=== PATIENT | female | born 1960 | race African-American/Black ===

== ENCOUNTER 2017-05-22 19:03 | Inpatient (IN) ==
[2017-05-22] MEDS ORDERED: hydrALAZINE 20 MG/1 ML VIAL IV STA (19:58)
[2017-05-22] MEDS ORDERED: FUROSEMIDE 40 MG/4 ML VIAL IV STA (19:58)
[2017-05-22 20:44] LABS: Basophils # 0.1 10*3/uL (0.0-0.2); Basophils % 0.8 % (0.0-0.8); Eosinophils # 0.1 10*3/uL (0.0-0.87); Eosinophils % 0.7 % (0.00-10.9); Immature Granulocytes % 0.6 %; Immature Granulocytes Absolute 0.05 #; Lymphocytes # 1.6 10*3/uL (1.4-4.0); Lymphocytes % 18.3 % (21.3-54.2); Mean Corpuscular HGB Conc 25.5 GM/DL (32-36); Mean Corpuscular Hemoglobin 17 PG (27-34); Mean Corpuscular Volume 67.6 FL (87-102); Monocytes # 0.7 10*3/uL (0.11-0.8); NRBC # 0.06 10*3/uL; Neutrophils # 6.1 10*3/uL (1.4-7.4); Neutrophils % 71.6 % (38.7-73.9); Platelet Count 356 T/CUMM (130-400); Red Blood Count 5.46 MC/CUMM (3.8-5.5); Red Cell Distribution Width 26.1 % (9.3-17.3); White Blood Count 8.6 T/CUMM (4-12)
[2017-05-22 20:46] LABS: Hematocrit 36.9 VOL% (35.7-47.0); Hemoglobin 9.4 GM/DL (12.0-16.0)
[2017-05-22 20:51] LABS: VBG Base Excess 5.8 MEQ/L (0-4); VBG HCO3 31.3 MEQ/L (24-28); VBG Oxygen Saturation 83.1 %; VBG PCO2 50.2 MMHG (41-51); VBG PH 7.413
[2017-05-22 21:04] LABS: Alanine Aminotransferase 17 U/L (13-56); Albumin 3.3 G/DL (3.4-5.0); Alkaline Phosphatase 103 U/L (45-117); Aspartate Amino Transferase 10 U/L (0-37); Blood Urea Nitrogen 9 MG/DL (7-18); Calcium 8.6 MG/DL (8.5-10.1); Glucose 105 MG/DL (74-106); Osmolality,Calculated 277.4 MOS/KG (273-304); Potassium 3.9 MMOL/L (3.5-5.1); Sodium 140 MMOL/L (136-145); Total Protein 7.3 G/DL (6.4-8.3); Troponin I Only < 0.015 NG/ML (0.00-0.045)
[2017-05-22] MEDS ORDERED: hydrALAZINE 20 MG/1 ML VIAL ONE (21:26)
[2017-05-22] MEDS ORDERED: FUROSEMIDE 40 MG/4 ML VIAL ONE (21:26)
[2017-05-23] MEDS ORDERED: hydrALAZINE 20 MG/1 ML VIAL IV PRN (00:55)
[2017-05-23] MEDS: METOPROLOL TARTRATE 50 MG TABLET PO SCH ×3 (01:39→21:07)
[2017-05-23 02:35] LABS: Basophils # 0.1 10*3/uL (0.0-0.2); Basophils % 0.6 % (0.0-0.8); Eosinophils % 0.3 % (0.00-10.9); Hematocrit 39.8 VOL% (35.7-47.0); Hemoglobin 10.1 GM/DL (12.0-16.0); Immature Granulocytes % 0.8 %; Immature Granulocytes Absolute 0.07 #; Lymphocytes # 1.6 10*3/uL (1.4-4.0); Lymphocytes % 18.2 % (21.3-54.2); Mean Corpuscular HGB Conc 25.4 GM/DL (32-36); Mean Corpuscular Hemoglobin 17 PG (27-34); Mean Corpuscular Volume 67.3 FL (87-102); Monocytes # 0.8 10*3/uL (0.11-0.8); Monocytes % 8.7 % (1.7-12.7); NRBC # 0.07 10*3/uL; Neutrophils # 6.2 10*3/uL (1.4-7.4); Neutrophils % 71.4 % (38.7-73.9); Platelet Count 360 T/CUMM (130-400); Red Blood Count 5.91 MC/CUMM (3.8-5.5); Red Cell Distribution Width 26.5 % (9.3-17.3); White Blood Count 8.7 T/CUMM (4-12)
[2017-05-23 02:45] LABS: Calcium 9.1 MG/DL (8.5-10.1); Osmolality,Calculated 281.1 MOS/KG (273-304); Potassium 4.1 MMOL/L (3.5-5.1); Risk Ratio 3.58; VLDL CHOLESTEROL 12.8 MG/DL
[2017-05-23] MEDS: ENOXAPARIN 40 MG/0.4 ML SYRINGE SUBCUT SCH (09:05)
[2017-05-23] MEDS: PANTOPRAZOLE 40 MG TABLET PO SCH (09:05)
[2017-05-23] MEDS: FUROSEMIDE 40 MG/4 ML VIAL IV SCH ×2 (09:06→15:09)
[2017-05-23] MEDS: amLODIPine 5 MG TABLET PO SCH (12:05)
[2017-05-23 17:31] LABS: Apearance,Urine CLEAR (Clear); Bilirubin,Urine Negative (Negative); Blood, Urine Moderate mg/dL (Negative); Glucose,Urine (UA) Negative (Negative); Ketones,Urine Negative (Negative); Mucus,Urine Occasional /LPF (Occasional); Nitrite,Urine Negative (Negative); Protein,Urine Negative; RBC,Urine <1 /HPF (0-4); Squamous Epithelial Cell,Urine Occasional /HPF (0-10); Urine Color Straw (Yellow); Urine Specific Gravity 1.004 (1.001-1.035); Urine Urobilinogen < 2.0 EU/DL (0.2-1.0); WBC,Urine 2 /HPF (0-6)
[2017-05-23 18:12] LABS: Barbiturates Screen,Urine Negative (Negative); Benzodiazepines Screen,Urine Negative (Negative); Cannabinoid Screen,Urine Negative (Negative); Opiate Screen,Urine Negative (Negative); Phencyclidine Screen,Urine Negative (Negative)
[2017-05-24 06:55] LABS: Free T4 (Free Thyroxine) 1.36 NG/DL (0.76-1.46); Thyroid Stimulating Hormone 1.1 uIU/ml (0.358-3.74)
[2017-05-24] MEDS: amLODIPine 5 MG TABLET PO SCH (08:54)
[2017-05-24] MEDS: METOPROLOL TARTRATE 50 MG TABLET PO SCH ×2 (08:54→21:30)
[2017-05-24] MEDS: PANTOPRAZOLE 40 MG TABLET PO SCH (08:54)
[2017-05-24] MEDS: ENOXAPARIN 40 MG/0.4 ML SYRINGE SUBCUT SCH (08:54)
[2017-05-24] MEDS: FUROSEMIDE 40 MG/4 ML VIAL IV SCH ×2 (08:54→17:07)
[2017-05-25] MEDS: ENOXAPARIN 40 MG/0.4 ML SYRINGE SUBCUT SCH (08:41)
[2017-05-25] MEDS: PANTOPRAZOLE 40 MG TABLET PO SCH (08:41)
[2017-05-25] MEDS: METOPROLOL TARTRATE 50 MG TABLET PO SCH ×2 (08:41→22:25)
[2017-05-25] MEDS: amLODIPine 5 MG TABLET PO SCH (08:41)
[2017-05-25] MEDS: FUROSEMIDE 40 MG/4 ML VIAL IV SCH ×2 (08:41→17:00)
[2017-05-26] MEDS: amLODIPine 5 MG TABLET PO SCH (09:09)
[2017-05-26] MEDS: PANTOPRAZOLE 40 MG TABLET PO SCH (09:09)
[2017-05-26] MEDS: METOPROLOL TARTRATE 50 MG TABLET PO SCH (09:09)
[2017-05-26] MEDS: FUROSEMIDE 40 MG/4 ML VIAL IV SCH (09:09)
[2017-05-26] MEDS: ENOXAPARIN 40 MG/0.4 ML SYRINGE SUBCUT SCH (09:10)
[2017-05-26 12:00] VITALS: BP 113/77
== END 2017-05-26 15:40 | disposition home or self-care (01) | DRG 194 ==
LOC: N.ED 19:03 → SUATTDRO 05-23 00:27 → N.5E 05-23 00:27
PROVIDERS: ADMIT Internal Medicine Nephrology; ATTEND Hospitalist

== ENCOUNTER 2020-09-02 07:00 | Inpatient (IN) ==
[2020-09-02 08:11] LABS: Eosinophils % 0.6 % (0.00-10.9); Neutrophils % 78.8 % (38.7-73.9); Red Cell Distribution Width 22.2 % (9.3-17.3)
[2020-09-02 08:32] LABS: Basophils # 0.1 10*3/uL (0.0-0.2); Basophils % 0.8 % (0.0-0.8); Eosinophils # 0.1 10*3/uL (0.0-0.87); Hematocrit 39.9 VOL% (35.7-47.0); Immature Granulocytes % 2.6 %; Immature Granulocytes Absolute 0.28 #; Lymphocytes # 1.2 10*3/uL (1.4-4.0); Lymphocytes % 11.5 % (21.3-54.2); Mean Corpuscular HGB Conc 25.8 GM/DL (32-36); Mean Corpuscular Volume 73.5 FL (87-102); Monocytes % 5.7 % (1.7-12.7); Platelet Count 189 T/CUMM (130-400); Red Blood Count 5.43 MC/CUMM (3.8-5.5); White Blood Count 10.6 T/CUMM (4-12)
[2020-09-02 08:33] LABS: Hemoglobin 10.3 GM/DL (12.0-16.0)
[2020-09-02 08:34] LABS: Hypochromasia 1+; Microcytosis 1+; Platelet Estimate Adequate
[2020-09-02 08:38] LABS: Albumin 3.7 G/DL (3.4-5.0); Bilirubin,Total 0.8 MG/DL (0.2-1.0); Calcium 8.5 MG/DL (8.5-10.1); Osmolality,Calculated 279.3 MOS/KG (273-304); Potassium 3.5 MMOL/L (3.5-5.1); Total Protein 7.9 G/DL (6.4-8.3)
[2020-09-02] MEDS ORDERED: cefTRIAXone 1,000 MG in SODIUM CHLORIDE 0.9% 100 ML IV STA (09:40)
[2020-09-02] MEDS ORDERED: cefTRIAXone 1,000 MG in SODIUM CHLORIDE 0.9% 100 ML IV ONE (11:10)
[2020-09-02] MEDS ORDERED: DOCUSATE SODIUM 100 MG CAPSULE PO PRN (11:11)
[2020-09-02] MEDS ORDERED: DEXTROSE 50% 25 GM/50 ML VIAL IV PRN (11:11)
[2020-09-02] MEDS ORDERED: ACETAMINOPHEN 325 MG TABLET PO PRN (11:11)
[2020-09-02] MEDS ORDERED: ONDANSETRON 4 MG/2 ML VIAL IV PRN (11:11)
[2020-09-02] MEDS ORDERED: GLUCAGON 1 MG VIAL IM PRN (11:11)
[2020-09-02] MEDS ORDERED: ALBUTEROL/IPRATROPIUM 3 ML NEB RESP TX PRN (11:44)
[2020-09-02 11:49] LABS: Risk Ratio 5.17; Thyroid Stimulating Hormone 1.23 uIU/ml (0.358-3.74); VLDL CHOLESTEROL 21.4 MG/DL
[2020-09-02] MEDS ORDERED: hydrALAZINE 20 MG/1 ML VIAL IV PRN (12:16)
[2020-09-02] MEDS: ENOXAPARIN 40 MG/0.4 ML SYRINGE SUBCUT SCH (16:00)
[2020-09-02] MEDS: FUROSEMIDE 40 MG/4 ML VIAL IV SCH (16:17)
[2020-09-02] MEDS: AZITHROMYCIN INJ 500 MG in SODIUM CHLORIDE 0.9% 250 ML IV SCH (16:17)
[2020-09-02] MEDS: METOPROLOL TARTRATE 50 MG TABLET PO SCH (22:41)
[2020-09-02] MEDS: NICOTINE 14 MG/24 HR PATCH TRANSDERM SCH (22:44)
[2020-09-03 05:40] LABS: Calcium 8.6 MG/DL (8.5-10.1); Osmolality,Calculated 276.4 MOS/KG (273-304); Potassium 3.5 MMOL/L (3.5-5.1)
[2020-09-03 06:15] LABS: Basophils # 0.1 10*3/uL (0.0-0.2); Basophils % 0.7 % (0.0-0.8); Eosinophils # 0.1 10*3/uL (0.0-0.87); Eosinophils % 1.1 % (0.00-10.9); Hematocrit 38.5 VOL% (35.7-47.0); Hemoglobin 9.8 GM/DL (12.0-16.0); Immature Granulocytes % 1.5 %; Immature Granulocytes Absolute 0.13 #; Lymphocytes # 1.3 10*3/uL (1.4-4.0); Mean Corpuscular HGB Conc 25.5 GM/DL (32-36); Mean Corpuscular Volume 73.6 FL (87-102); Monocytes % 6.7 % (1.7-12.7); NRBC # 0.05 10*3/uL; Platelet Count 210 T/CUMM (130-400); Red Blood Count 5.23 MC/CUMM (3.8-5.5); Red Cell Distribution Width 22.2 % (9.3-17.3)
[2020-09-03 06:16] LABS: Hypochromasia 1+; Microcytosis 1+; Platelet Estimate Adequate
[2020-09-03] MEDS: amLODIPine 10 MG TABLET PO SCH (08:46)
[2020-09-03] MEDS: PANTOPRAZOLE 40 MG TABLET PO SCH (08:46)
[2020-09-03] MEDS: METOPROLOL TARTRATE 50 MG TABLET PO SCH ×2 (08:46→21:50)
[2020-09-03] MEDS: FUROSEMIDE 40 MG/4 ML VIAL IV SCH (08:47)
[2020-09-03] MEDS: NICOTINE 14 MG/24 HR PATCH TRANSDERM SCH (08:47)
[2020-09-03] MEDS ORDERED: FUROSEMIDE 20 MG TABLET PO SCH (09:00)
[2020-09-03 10:20] LABS: ABG Base Excess 14.3 MMOL/L (-2.5-2.5); ABG HCO3 38.1 MMOL/L (20-26); ABG Oxygen Saturation 98.3 % (95-100); ABG PH 7.371 (7.35-7.45); ABG TCO2 39.2 MMOL/L (23-27); Allen Test Positive
[2020-09-03 10:24] LABS: ABG PCO2 73.1 MM HG (35-48)
[2020-09-03] MEDS: cefTRIAXone 2,000 MG in SODIUM CHLORIDE 0.9% 100 ML IV SCH (11:25)
[2020-09-03] MEDS: AZITHROMYCIN INJ 500 MG in SODIUM CHLORIDE 0.9% 250 ML IV SCH (11:55)
[2020-09-03] MEDS: ENOXAPARIN 40 MG/0.4 ML SYRINGE SUBCUT SCH (12:18)
[2020-09-03 14:49] LABS: ABG Base Excess 13.9 MMOL/L (-2.5-2.5); ABG HCO3 37.7 MMOL/L (20-26); ABG Oxygen Saturation 95.5 % (95-100); ABG PCO2 68.5 MM HG (35-48); ABG PH 7.391 (7.35-7.45); ABG PO2 79.3 MM HG (80-95); ABG TCO2 38.3 MMOL/L (23-27); Allen Test Positive; Pt O2 Delivery Device BIPAP
[2020-09-04 05:58] LABS: Calcium 9.1 MG/DL (8.5-10.1); Osmolality,Calculated 276.5 MOS/KG (273-304); Potassium 3.2 MMOL/L (3.5-5.1)
[2020-09-04 05:59] LABS: Basophils # 0.1 10*3/uL (0.0-0.2); Basophils % 0.6 % (0.0-0.8); Eosinophils # 0.2 10*3/uL (0.0-0.87); Eosinophils % 1.7 % (0.00-10.9); Hematocrit 41.5 VOL% (35.7-47.0); Hemoglobin 10.2 GM/DL (12.0-16.0); Immature Granulocytes % 0.9 %; Immature Granulocytes Absolute 0.12 #; Lymphocytes # 3.3 10*3/uL (1.4-4.0); Lymphocytes % 26.3 % (21.3-54.2); Mean Corpuscular HGB Conc 24.6 GM/DL (32-36); Mean Corpuscular Volume 74.6 FL (87-102); Monocytes % 7.6 % (1.7-12.7); NRBC # 0.12 10*3/uL; Neutrophils % 62.9 % (38.7-73.9); Platelet Count 288 T/CUMM (130-400); Red Blood Count 5.56 MC/CUMM (3.8-5.5); White Blood Count 12.7 T/CUMM (4-12)
[2020-09-04 06:26] LABS: Acanthocytes Few; Anisocytosis 3+; Band Neutrophils 1 % (0-10); Eosinophils 1 % (0-10); Giant Platelets Few; Hypochromasia 2+; Lymphocytes 20 % (20-55); Macrocytosis 2+; Metamyelocytes 2 %; Microcytosis 1+; Ovalocytes Few; Platelet Estimate Normal; Segmented Neutrophils 68 % (50-85); Target Cells 2+; Total Cells Counted 100
[2020-09-04] MEDS ORDERED: POTASSIUM CHLORIDE 20 MEQ TABLET PO ONE (07:33)
[2020-09-04] MEDS: NICOTINE 14 MG/24 HR PATCH TRANSDERM SCH (09:39)
[2020-09-04] MEDS: amLODIPine 10 MG TABLET PO SCH (09:40)
[2020-09-04] MEDS: PANTOPRAZOLE 40 MG TABLET PO SCH (09:40)
[2020-09-04] MEDS: METOPROLOL TARTRATE 50 MG TABLET PO SCH (09:40)
[2020-09-04] MEDS: FUROSEMIDE 40 MG/4 ML VIAL IV SCH (09:56)
[2020-09-04 11:17] LABS: ABG Base Excess 14.3 MMOL/L (-2.5-2.5); ABG Oxygen Saturation 97.5 % (95-100); ABG PCO2 63.7 MM HG (35-48); ABG PH 7.427 (7.35-7.45); ABG PO2 97.3 MM HG (80-95); Allen Test Positive; Pt O2 Delivery Device BIPAP
[2020-09-04] MEDS: cefTRIAXone 2,000 MG in SODIUM CHLORIDE 0.9% 100 ML IV SCH (12:48)
[2020-09-04] MEDS: ENOXAPARIN 40 MG/0.4 ML SYRINGE SUBCUT SCH (12:49)
[2020-09-04] MEDS: AZITHROMYCIN INJ 500 MG in SODIUM CHLORIDE 0.9% 250 ML IV SCH (14:33)
[2020-09-04 16:33] VITALS: BP 105/63
== END 2020-09-04 17:07 | disposition home or self-care (01) | DRG 139 ==
LOC: N.ED 07:00 → N.EDINP 10:08 → N.TELES 20:03
PROVIDERS: ADMIT Emergency Medicine; ATTEND Emergency Medicine

== ENCOUNTER 2021-01-08 09:00 | Inpatient (IN) ==
[2021-01-08] MEDS ORDERED: ALBUTEROL NEB SOLN 5 MG/ML 20 ML/BOTTLE CONT NEB STA (09:21)
[2021-01-08 10:02] LABS: Basophils # 0.1 10*3/uL (0.0-0.2); Eosinophils % 0.1 % (0.00-10.9); Hematocrit 39.1 VOL% (35.7-47.0); Immature Granulocytes % 0.9 %; Immature Granulocytes Absolute 0.09 #; Lymphocytes # 1.1 10*3/uL (1.4-4.0); Lymphocytes % 11.3 % (21.3-54.2); Mean Corpuscular HGB Conc 24.8 GM/DL (32-36); Mean Corpuscular Volume 69.3 FL (87-102); Monocytes % 13.2 % (1.7-12.7); NRBC # 0.05 10*3/uL; Neutrophils % 73.5 % (38.7-73.9); Platelet Count 221 T/CUMM (130-400); Red Blood Count 5.64 MC/CUMM (3.8-5.5); White Blood Count 9.8 T/CUMM (4-12)
[2021-01-08 10:03] LABS: Hemoglobin 9.7 GM/DL (12.0-16.0)
[2021-01-08 10:06] LABS: Eosinophils 1 % (0-10); Hypochromasia 1+; Lymphocytes 10 % (20-55); Microcytosis 1+; Platelet Estimate Adequate; Segmented Neutrophils 73 % (50-85); Total Cells Counted 100
[2021-01-08 10:09] LABS: Albumin 3.8 G/DL (3.4-5.0); Calcium 8.8 MG/DL (8.5-10.1); Osmolality,Calculated 272.8 MOS/KG (273-304); Potassium 3.9 MMOL/L (3.5-5.1); Total Protein 7.7 G/DL (6.4-8.2)
[2021-01-08] MEDS ORDERED: FUROSEMIDE 40 MG/4 ML VIAL IV STA (10:42)
[2021-01-08] MEDS ORDERED: NICOTINE 21 MG/24 HR PATCH TRANSDERM PRN (11:51)
[2021-01-08] MEDS ORDERED: ACETAMINOPHEN 325 MG TABLET PO PRN ×2 (11:51→11:56)
[2021-01-08] MEDS ORDERED: DEXTROSE 50% 25 GM/50 ML VIAL IV PRN ×2 (11:51→11:56)
[2021-01-08] MEDS ORDERED: GLUCAGON 1 MG VIAL IM PRN ×2 (11:51→11:56)
[2021-01-08] MEDS ORDERED: ONDANSETRON 4 MG/2 ML VIAL IV PRN ×2 (11:51→11:56)
[2021-01-08] MEDS ORDERED: hydrALAZINE 20 MG/1 ML VIAL IV PRN (11:56)
[2021-01-08] MEDS ORDERED: DOCUSATE SODIUM 100 MG CAPSULE PO PRN (11:56)
[2021-01-08] MEDS ORDERED: ALBUTEROL 2.5 MG/3 ML NEB RESP TX PRN (12:03)
[2021-01-08] MEDS ORDERED: PANTOPRAZOLE 40 MG TABLET PO SCH (12:30)
[2021-01-08] MEDS ORDERED: ALBUTEROL 2.5 MG/3 ML NEB RESP TX SCH (13:00)
[2021-01-08] MEDS: cefTRIAXone 2,000 MG in SODIUM CHLORIDE 0.9% 100 ML IV SCH (14:24)
[2021-01-08] MEDS: ENOXAPARIN 40 MG/0.4 ML SYRINGE SUBCUT SCH (14:25)
[2021-01-08] MEDS: FUROSEMIDE 40 MG/4 ML VIAL IV SCH (14:25)
[2021-01-08] MEDS: methylPREDNISolone SOD SUC 40 MG/1 ML VIAL IV SCH (14:25)
[2021-01-08] MEDS: ALBUTEROL/IPRATROPIUM 3 ML NEB RESP TX SCH ×3 (15:24→23:28)
[2021-01-08] MEDS: AZITHROMYCIN INJ 500 MG in SODIUM CHLORIDE 0.9% 250 ML IV SCH (15:28)
[2021-01-08] MEDS: guaiFENesin/DM ER 600-30 MG TABLET PO SCH (20:42)
[2021-01-08] MEDS: DOCUSATE SODIUM 100 MG CAPSULE PO SCH (20:42)
[2021-01-08] MEDS: buPROPion SR 100 MG TABLET PO SCH (21:14)
[2021-01-09] MEDS: ALBUTEROL/IPRATROPIUM 3 ML NEB RESP TX SCH ×6 (03:37→23:59)
[2021-01-09 06:45] LABS: Basophils % 0.5 % (0.0-0.8); Hematocrit 38.7 VOL% (35.7-47.0); Hemoglobin 9.6 GM/DL (12.0-16.0); Immature Granulocytes Absolute 0.13 #; Lymphocytes # 0.5 10*3/uL (1.4-4.0); Lymphocytes % 7.4 % (21.3-54.2); Mean Corpuscular HGB Conc 24.8 GM/DL (32-36); Mean Corpuscular Volume 69.7 FL (87-102); Monocytes % 3.9 % (1.7-12.7); NRBC # 0.05 10*3/uL; Neutrophils % 86.2 % (38.7-73.9); Platelet Count 220 T/CUMM (130-400); Red Blood Count 5.55 MC/CUMM (3.8-5.5); Red Cell Distribution Width 24.9 % (9.3-17.3); White Blood Count 6.4 T/CUMM (4-12)
[2021-01-09 07:06] LABS: Hypochromasia 2+; Microcytosis 1+; Platelet Estimate Adequate
[2021-01-09 07:19] LABS: Osmolality,Calculated 276.8 MOS/KG (273-304); Potassium 3.6 MMOL/L (3.5-5.1)
[2021-01-09 07:24] LABS: Folate 14.56 NG/ML (5.38-24.0); Vitamin B12 918 PG/ML (211-911)
[2021-01-09 07:25] LABS: Ferritin 12.9 ng/ml (8-252)
[2021-01-09 07:59] LABS: Sedimentation Rate-Westergren 10 MM/HR (0-30)
[2021-01-09] MEDS: AZITHROMYCIN INJ 500 MG in SODIUM CHLORIDE 0.9% 250 ML IV SCH (08:53)
[2021-01-09] MEDS: DOCUSATE SODIUM 100 MG CAPSULE PO SCH ×2 (08:54→20:29)
[2021-01-09] MEDS: buPROPion SR 100 MG TABLET PO SCH ×2 (08:54→20:29)
[2021-01-09] MEDS: guaiFENesin/DM ER 600-30 MG TABLET PO SCH ×2 (08:54→20:29)
[2021-01-09] MEDS: FUROSEMIDE 40 MG/4 ML VIAL IV SCH (08:55)
[2021-01-09] MEDS: NICOTINE 21 MG/24 HR PATCH TRANSDERM SCH (08:55)
[2021-01-09] MEDS: PANTOPRAZOLE 40 MG TABLET PO SCH (08:55)
[2021-01-09] MEDS: ENOXAPARIN 40 MG/0.4 ML SYRINGE SUBCUT SCH (11:12)
[2021-01-09] MEDS: cefTRIAXone 2,000 MG in SODIUM CHLORIDE 0.9% 100 ML IV SCH (11:12)
[2021-01-09] MEDS: methylPREDNISolone SOD SUC 40 MG/1 ML VIAL IV SCH ×2 (11:13)
[2021-01-09 12:07] LABS: Hemoglobin A1 (Alkaline) 97.3 % (96.5-98.5); Hemoglobin A2 (Alkaline) 2.7 % (1.5-3.5)
[2021-01-09] MEDS: FERRIC GLUCONATE COMPLEX 125 MG in SODIUM CHLORIDE 0.9% 100 ML IV SCH (12:32)
[2021-01-10] MEDS: methylPREDNISolone SOD SUC 40 MG/1 ML VIAL IV SCH ×2 (00:02→12:18)
[2021-01-10] MEDS: ALBUTEROL/IPRATROPIUM 3 ML NEB RESP TX SCH ×6 (03:43→23:15)
[2021-01-10] MEDS ORDERED: PROMETHAZINE 25 MG/1 ML VIAL IM ONE (07:00)
[2021-01-10 07:01] LABS: Basophils % 0.2 % (0.0-0.8); Hematocrit 40.7 VOL% (35.7-47.0); Immature Granulocytes % 1.4 %; Immature Granulocytes Absolute 0.09 #; Lymphocytes # 0.6 10*3/uL (1.4-4.0); Mean Corpuscular HGB Conc 24.3 GM/DL (32-36); Mean Corpuscular Volume 70.1 FL (87-102); Monocytes % 3.2 % (1.7-12.7); NRBC # 0.08 10*3/uL; Neutrophils % 85.2 % (38.7-73.9); Platelet Count 275 T/CUMM (130-400); Red Blood Count 5.81 MC/CUMM (3.8-5.5); Red Cell Distribution Width 25.7 % (9.3-17.3); White Blood Count 6.3 T/CUMM (4-12)
[2021-01-10 07:02] LABS: Hemoglobin 9.9 GM/DL (12.0-16.0)
[2021-01-10 07:04] LABS: Hypochromasia 1+; Lymphocytes 11 % (20-55); Microcytosis 1+; Platelet Estimate Adequate; Segmented Neutrophils 86 % (50-85); Total Cells Counted 100
[2021-01-10 07:07] LABS: Calcium 9.5 MG/DL (8.5-10.1); Osmolality,Calculated 279.7 MOS/KG (273-304); Potassium 3.7 MMOL/L (3.5-5.1)
[2021-01-10] MEDS ORDERED: MIDAZOLAM 2 MG/2 ML VIAL IV ONE (07:30)
[2021-01-10] MEDS ORDERED: LIDOCAINE 2% 20 ML VIAL RESP TX ONE (07:30)
[2021-01-10] MEDS ORDERED: LIDOCAINE 2% VISCOUS 100 ML BOTTLE SWISH/SPIT ONE (07:30)
[2021-01-10] MEDS ORDERED: MEPERIDINE 50 MG/1 ML VIAL IM ONE (07:30)
[2021-01-10] MEDS ORDERED: LIDOCAINE 1% 20 ML VIAL MISC INJ ONE (07:30)
[2021-01-10] MEDS: AZITHROMYCIN INJ 500 MG in SODIUM CHLORIDE 0.9% 250 ML IV SCH (08:55)
[2021-01-10] MEDS: buPROPion SR 100 MG TABLET PO SCH ×2 (10:14→22:48)
[2021-01-10] MEDS: guaiFENesin/DM ER 600-30 MG TABLET PO SCH ×2 (10:14→22:48)
[2021-01-10] MEDS: DOCUSATE SODIUM 100 MG CAPSULE PO SCH ×2 (10:14→22:48)
[2021-01-10] MEDS: PANTOPRAZOLE 40 MG TABLET PO SCH (10:14)
[2021-01-10] MEDS: FERRIC GLUCONATE COMPLEX 125 MG in SODIUM CHLORIDE 0.9% 100 ML IV SCH (10:14)
[2021-01-10] MEDS: FUROSEMIDE 40 MG/4 ML VIAL IV SCH (10:15)
[2021-01-10] MEDS: NICOTINE 21 MG/24 HR PATCH TRANSDERM SCH (10:15)
[2021-01-10] MEDS: METOPROLOL TARTRATE 100 MG TABLET PO SCH (12:18)
[2021-01-10] MEDS: ENOXAPARIN 40 MG/0.4 ML SYRINGE SUBCUT SCH (12:18)
[2021-01-10] MEDS: amLODIPine 10 MG TABLET PO SCH (12:18)
[2021-01-10] MEDS: cefTRIAXone 2,000 MG in SODIUM CHLORIDE 0.9% 100 ML IV SCH (12:18)
[2021-01-11] MEDS: methylPREDNISolone SOD SUC 40 MG/1 ML VIAL IV SCH ×2 (00:47→11:39)
[2021-01-11] MEDS: ALBUTEROL/IPRATROPIUM 3 ML NEB RESP TX SCH ×3 (03:55→11:39)
[2021-01-11 06:23] LABS: Calcium 9.5 MG/DL (8.5-10.1); Osmolality,Calculated 279.5 MOS/KG (273-304); Potassium 4.1 MMOL/L (3.5-5.1)
[2021-01-11 07:07] LABS: Basophils % 0.1 % (0.0-0.8); Hematocrit 39.4 VOL% (35.7-47.0); Hemoglobin 9.4 GM/DL (12.0-16.0); Immature Granulocytes % 1.2 %; Immature Granulocytes Absolute 0.09 #; Lymphocytes % 12.4 % (21.3-54.2); Mean Corpuscular HGB Conc 23.9 GM/DL (32-36); Mean Corpuscular Volume 71.9 FL (87-102); Monocytes % 3.3 % (1.7-12.7); NRBC # 0.08 10*3/uL; Platelet Count 260 T/CUMM (130-400); Red Blood Count 5.48 MC/CUMM (3.8-5.5); Red Cell Distribution Width 25.9 % (9.3-17.3); White Blood Count 7.8 T/CUMM (4-12)
[2021-01-11 07:18] LABS: Hypochromasia 2+; Microcytosis 2+; Polychromasia Slight
[2021-01-11 07:19] LABS: Stomatocytes Slight
[2021-01-11 07:20] LABS: Platelet Estimate Normal
[2021-01-11] MEDS: NICOTINE 21 MG/24 HR PATCH TRANSDERM SCH (08:43)
[2021-01-11] MEDS: AZITHROMYCIN INJ 500 MG in SODIUM CHLORIDE 0.9% 250 ML IV SCH (08:44)
[2021-01-11] MEDS: guaiFENesin/DM ER 600-30 MG TABLET PO SCH (08:44)
[2021-01-11] MEDS: METOPROLOL TARTRATE 100 MG TABLET PO SCH (08:44)
[2021-01-11] MEDS: amLODIPine 10 MG TABLET PO SCH (08:44)
[2021-01-11] MEDS: buPROPion SR 100 MG TABLET PO SCH (08:44)
[2021-01-11] MEDS: PANTOPRAZOLE 40 MG TABLET PO SCH (08:44)
[2021-01-11] MEDS: DOCUSATE SODIUM 100 MG CAPSULE PO SCH (08:44)
[2021-01-11] MEDS: FUROSEMIDE 40 MG/4 ML VIAL IV SCH (08:44)
[2021-01-11] MEDS: FERRIC GLUCONATE COMPLEX 125 MG in SODIUM CHLORIDE 0.9% 100 ML IV SCH (10:11)
[2021-01-11] MEDS: ENOXAPARIN 40 MG/0.4 ML SYRINGE SUBCUT SCH (11:36)
[2021-01-11 11:48] VITALS: BP 124/64
[2021-01-11] MEDS: cefTRIAXone 2,000 MG in SODIUM CHLORIDE 0.9% 100 ML IV SCH (12:30)
== END 2021-01-11 14:03 | disposition home or self-care (01) | DRG 140 ==
LOC: N.ED 09:00 → N.EDINP 11:36 → SUATTDRO 11:36 → N.5E 12:37
PROVIDERS: ADMIT Hospitalist; ATTEND Internal Medicine

== ENCOUNTER 2022-03-15 14:02 | Inpatient (IN) ==
[2022-03-15] MEDS ORDERED: ACETAMINOPHEN 500 MG TABLET ONE (14:39)
[2022-03-15] MEDS ORDERED: ACETAMINOPHEN 500 MG TABLET PO STA (14:48)
[2022-03-15 16:13] LABS: Basophils % 0.2 % (0.0-0.8); Hematocrit 44.6 VOL% (35.7-47.0); Hemoglobin 13.7 GM/DL (12.0-16.0); Immature Granulocytes % 0.7 %; Immature Granulocytes Absolute 0.13 #; Lymphocytes % 5.4 % (21.3-54.2); Mean Corpuscular HGB Conc 30.7 GM/DL (32-36); Mean Corpuscular Volume 84.2 FL (87-102); Mean Platelet Volume 12.2 FL (9.6-12.0); Monocytes # 1.4 10*3/uL (0.11-0.8); Monocytes % 7.2 % (1.7-12.7); Neutrophils % 86.5 % (38.7-73.9); Platelet Count 252 T/CUMM (130-400)
[2022-03-15] MEDS ORDERED: SODIUM CHLORIDE 0.9% 1,000 ML IV STA (16:17)
[2022-03-15] MEDS ORDERED: MORPHINE 2 MG/1 ML SYRINGE IV STA (16:17)
[2022-03-15] MEDS ORDERED: ONDANSETRON 4 MG/2 ML VIAL IV STA (16:17)
[2022-03-15 16:25] LABS: Calcium 9.3 MG/DL (8.5-10.1); Osmolality,Calculated 267.2 MOS/KG (273-304); Potassium 3.8 MMOL/L (3.5-5.1)
[2022-03-15] MEDS ORDERED: PIPERACILLIN/TAZOBACTAM 3,375 MG in SODIUM CHLORIDE 0.9% 100 ML IV STA (17:30)
[2022-03-15] MEDS ORDERED: VANCOMYCIN INJ 2,000 MG in SODIUM CHLORIDE 0.9% 250 ML IV STA (17:30)
[2022-03-15] MEDS ORDERED: ONDANSETRON 4 MG/2 ML VIAL IV PRN (20:03)
[2022-03-15] MEDS ORDERED: ACETAMINOPHEN 325 MG TABLET PO PRN (20:03)
[2022-03-15] MEDS ORDERED: GLUCAGON 1 MG VIAL IM PRN (20:03)
[2022-03-15] MEDS ORDERED: hydrALAZINE 20 MG/1 ML VIAL IV PRN (20:11)
[2022-03-15] MEDS ORDERED: VANCOMYCIN INJ 750 MG in SODIUM CHLORIDE 0.9% 250 ML IV SCH (20:30)
[2022-03-15] MEDS ORDERED: DEXTROSE 10% 250 ML BAG IV PRN (20:40)
[2022-03-15 21:06] LABS: Mucus,Urine Occasional /LPF (Occasional); RBC,Urine 1 /HPF (0-4); Squamous Epithelial Cell,Urine Occasional /HPF (0-10)
[2022-03-15 21:17] LABS: Barbiturates Screen,Urine Negative (Negative); Benzodiazepines Screen,Urine Negative (Negative); Cannabinoid Screen,Urine Negative (Negative); Opiate Screen,Urine Positive (Negative); Phencyclidine Screen,Urine Negative (Negative)
[2022-03-15 21:18] LABS: Glucose,Urine (UA) Negative (Negative); Ketones,Urine Trace mg/dL (Negative); Nitrite,Urine Negative (Negative); Protein,Urine 30 mg/dL (Negative); Urine Appearance Clear (Clear); Urine Color Yellow (Yellow); Urine Specific Gravity 1.005 (1.001-1.035); Urine pH 5.5 (4.5-8.0)
[2022-03-15 21:19] LABS: Bilirubin,Urine Small mg/dL (Negative); Blood, Urine Trace mg/dL (Negative); Urine Urobilinogen 0.2 eU/dL (<2.0)
[2022-03-15 22:06] LABS: ABG Base Excess 2.2 MMOL/L (-2.5-2.5); ABG HCO3 26.3 MMOL/L (20-26); ABG Oxygen Saturation 92.7 % (95-100); ABG PCO2 56.6 MM HG (35-48); ABG PH 7.329 (7.35-7.45); ABG TCO2 26.2 MMOL/L (23-27)
[2022-03-16] MEDS: ALBUTEROL 2.5 MG/3 ML NEB RESP TX SCH ×4 (00:28→19:43)
[2022-03-16 07:26] LABS: Albumin 2.5 G/DL (3.4-5.0); Bilirubin,Total 1.3 MG/DL (0.20-1.00); Calcium 9.1 MG/DL (8.5-10.1); Osmolality,Calculated 275.5 MOS/KG (273-304); Risk Ratio 7.4; Total Protein 6.7 G/DL (6.4-8.2); VLDL Cholesterol 29.6 MG/DL
[2022-03-16 07:30] LABS: Thyroid Stimulating Hormone 0.899 uIU/ml (0.358-3.74)
[2022-03-16 08:43] LABS: Basophils % 0.2 % (0.0-0.8); Eosinophils % 0.1 % (0.00-10.9); Hematocrit 42.3 VOL% (35.7-47.0); Immature Granulocytes Absolute 0.19 #; Lymphocytes # 1.3 10*3/uL (1.4-4.0); Lymphocytes % 6.5 % (21.3-54.2); Mean Corpuscular Volume 84.1 FL (87-102); Mean Platelet Volume 12.8 FL (9.6-12.0); Monocytes # 1.4 10*3/uL (0.11-0.8); Neutrophils % 85.2 % (38.7-73.9); Red Blood Count 5.03 MC/CUMM (3.8-5.5); Red Cell Distribution Width 15.9 % (9.3-17.3); White Blood Count 19.9 T/CUMM (4-12)
[2022-03-16 08:45] LABS: Hemoglobin 12.7 GM/DL (12.0-16.0); Platelet Count 157 T/CUMM (130-400)
[2022-03-16] MEDS ORDERED: CLINDAMYCIN INJ 900 MG/50 ML PREMIX IV ONE (09:39)
[2022-03-16] MEDS ORDERED: ROCURONIUM 50 MG/5 ML VIAL IV ONE (10:38)
[2022-03-16] MEDS ORDERED: SUCCINYLCHOLINE 200 MG/10 ML VIAL ONE (10:38)
[2022-03-16] MEDS ORDERED: propofoL 200 MG/20 ML VIAL IV ONE (10:38)
[2022-03-16] MEDS ORDERED: ETOMIDATE 40 MG/20 ML VIAL IV ONE (10:38)
[2022-03-16] MEDS ORDERED: SEVOFLURANE 1 UNIT/15 MINUTE INH ONE (10:38)
[2022-03-16] MEDS ORDERED: PHENYLEPHRINE 1 MG/10 ML SYRINGE IV ONE (10:38)
[2022-03-16] MEDS ORDERED: LIDOCAINE 2% 5 ML VIAL ONE (10:38)
[2022-03-16] MEDS ORDERED: MIDAZOLAM 2 MG/2 ML VIAL ONE (10:40)
[2022-03-16] MEDS ORDERED: fentaNYL 100 MCG/2 ML VIAL ONE (10:40)
[2022-03-16] MEDS ORDERED: LACTATED RINGERS 1,000 ML IV SCH (11:00)
[2022-03-16] MEDS ORDERED: MAGNESIUM SULF RIDER 2 GM/50 ML PREMIX IV ONE (11:11)
[2022-03-16] MEDS ORDERED: ACETAMINOPHEN INJ 1,000 MG/100 ML VIAL IV ONE (11:33)
[2022-03-16] MEDS ORDERED: ALBUTEROL/IPRATROPIUM 3 ML NEB RESP TX ONE (11:59)
[2022-03-16] MEDS ORDERED: DEXTROSE 50% 25 GM/50 ML VIAL IV PRN (13:21)
[2022-03-16] MEDS ORDERED: GLUCAGON 1 MG VIAL IM PRN (13:21)
[2022-03-16] MEDS: SODIUM CHLORIDE 0.9% 1,000 ML IV SCH ×3 (13:25→18:04)
[2022-03-16] MEDS: INSULIN LISPRO 100 UNIT/ML SUBCUT SCH ×4 (13:25→22:23)
[2022-03-16] MEDS: FERROUS SULFATE 325 MG TABLET PO SCH ×2 (13:25→22:33)
[2022-03-16] MEDS: PIPERACILLIN/TAZOBACTAM 3,375 MG in SODIUM CHLORIDE 0.9% 100 ML IV SCH ×2 (13:26→18:00)
[2022-03-16] MEDS: ENOXAPARIN 40 MG/0.4 ML SYRINGE SUBCUT SCH (13:26)
[2022-03-16] MEDS: FUROSEMIDE 40 MG TABLET PO SCH (13:27)
[2022-03-16] MEDS: PANTOPRAZOLE 40 MG TABLET PO SCH (13:27)
[2022-03-16] MEDS: METOPROLOL TARTRATE 100 MG TABLET PO SCH (13:27)
[2022-03-16] MEDS: POTASSIUM CHLORIDE RIDER 10 MEQ/100 ML PREMIX IV SCH ×4 (13:28→22:15)
[2022-03-16 18:31] VITALS: BP 117/55
[2022-03-16] MEDS ORDERED: MORPHINE 2 MG/1 ML SYRINGE IV ONE (18:38)
[2022-03-16] MEDS ORDERED: METOPROLOL TARTRATE 5 MG/5 ML VIAL IV ONE (18:38)
[2022-03-16] MEDS ORDERED: DIAZEPAM 10 MG/2 ML SYRINGE IV ONE (18:59)
[2022-03-16] MEDS ORDERED: ROCURONIUM 100 MG/10 ML VIAL IV ONE (19:12)
[2022-03-16] MEDS ORDERED: ETOMIDATE 20 MG/10 ML VIAL IV ONE (19:13)
[2022-03-16 19:42] LABS: Arterial Base Excess iSTAT 2 MMOL/L (-2.5-2.5); Arterial Bicarbonate iSTAT 31.2 MMOL/L (20-26); Arterial O2 Saturation iSTAT 88 % (95-100); Arterial PCO2 iSTAT 67 MM HG (35-48); Arterial PO2 iSTAT 64 MM HG (80-95); Arterial Total CO2 iSTAT 33 MMO/L (23-27); Arterial pH iSTAT 7.277 (7.35-7.45)
[2022-03-16 21:02] LABS: Arterial Base Excess iSTAT 3 MMOL/L (-2.5-2.5); Arterial O2 Saturation iSTAT 90 % (95-100); Arterial PCO2 iSTAT 59 MM HG (35-48); Arterial PO2 iSTAT 64 MM HG (80-95); Arterial Total CO2 iSTAT 33 MMO/L (23-27); Arterial pH iSTAT 7.328 (7.35-7.45)
[2022-03-16 21:16] LABS: Albumin 2.4 G/DL (3.4-5.0); Bilirubin,Total 0.8 MG/DL (0.20-1.00); Calcium 8.7 MG/DL (8.5-10.1); Osmolality,Calculated 281.3 MOS/KG (273-304); Potassium 3.3 MMOL/L (3.5-5.1)
[2022-03-16 21:28] LABS: Basophils % 0.2 % (0.0-0.8); Eosinophils % 0.1 % (0.00-10.9); Hematocrit 45.4 VOL% (35.7-47.0); Hemoglobin 13.3 GM/DL (12.0-16.0); Immature Granulocytes % 1.4 %; Immature Granulocytes Absolute 0.29 #; Lymphocytes # 0.5 10*3/uL (1.4-4.0); Lymphocytes % 2.4 % (21.3-54.2); Mean Corpuscular HGB Conc 29.3 GM/DL (32-36); Mean Corpuscular Volume 84.5 FL (87-102); Mean Platelet Volume 12.8 FL (9.6-12.0); Monocytes # 1.6 10*3/uL (0.11-0.8); Monocytes % 7.6 % (1.7-12.7); Neutrophils % 88.3 % (38.7-73.9); Platelet Count 283 T/CUMM (130-400); Red Blood Count 5.37 MC/CUMM (3.8-5.5); Red Cell Distribution Width 16.3 % (9.3-17.3); White Blood Count 20.8 T/CUMM (4-12)
[2022-03-16 21:32] LABS: Band Neutrophils 1 % (0-10); Lymphocytes 4 % (20-55); Platelet Estimate Increased; Polychromasia Slight
[2022-03-16 21:33] LABS: Total Cells Counted 100
[2022-03-16] MEDS ORDERED: POTASSIUM CHLORIDE RIDER 10 MEQ/100 ML PREMIX IV ONE (22:21)
[2022-03-17] MEDS: ALBUTEROL 2.5 MG/3 ML NEB RESP TX SCH ×4 (00:16→19:58)
[2022-03-17] MEDS: VANCOMYCIN INJ 2,000 MG in SODIUM CHLORIDE 0.9% 500 ML IV SCH ×2 (00:21→22:01)
[2022-03-17] MEDS: PIPERACILLIN/TAZOBACTAM 3,375 MG in SODIUM CHLORIDE 0.9% 100 ML IV SCH ×3 (03:40→17:14)
[2022-03-17] MEDS: SODIUM CHLORIDE 0.9% 1,000 ML IV SCH ×2 (03:42→15:05)
[2022-03-17 04:03] LABS: Arterial Base Excess iSTAT 2 MMOL/L (-2.5-2.5); Arterial Bicarbonate iSTAT 30.3 MMOL/L (20-26); Arterial O2 Saturation iSTAT 91 % (95-100); Arterial PCO2 iSTAT 60 MM HG (35-48); Arterial PO2 iSTAT 69 MM HG (80-95); Arterial Total CO2 iSTAT 32 MMO/L (23-27); Arterial pH iSTAT 7.309 (7.35-7.45)
[2022-03-17 05:50] LABS: Calcium 8.4 MG/DL (8.5-10.1); Osmolality,Calculated 278.4 MOS/KG (273-304); Potassium 3.8 MMOL/L (3.5-5.1)
[2022-03-17 06:00] LABS: Basophils % 0.2 % (0.0-0.8); Eosinophils % 0.1 % (0.00-10.9); Hematocrit 42.9 VOL% (35.7-47.0); Hemoglobin 12.6 GM/DL (12.0-16.0); Immature Granulocytes % 1.8 %; Immature Granulocytes Absolute 0.38 #; Lymphocytes # 0.9 10*3/uL (1.4-4.0); Lymphocytes % 4.4 % (21.3-54.2); Mean Corpuscular HGB Conc 29.4 GM/DL (32-36); Mean Corpuscular Volume 86.1 FL (87-102); Mean Platelet Volume 12.9 FL (9.6-12.0); Monocytes # 1.6 10*3/uL (0.11-0.8); Monocytes % 7.5 % (1.7-12.7); Platelet Count 268 T/CUMM (130-400); Red Blood Count 4.98 MC/CUMM (3.8-5.5); Red Cell Distribution Width 16.2 % (9.3-17.3); White Blood Count 20.7 T/CUMM (4-12)
[2022-03-17 06:02] LABS: Lymphocytes 3 % (20-55); Platelet Estimate Adequate; Total Cells Counted 100
[2022-03-17] MEDS: PANTOPRAZOLE 40 MG TABLET PO SCH (09:49)
[2022-03-17] MEDS: FERROUS SULFATE 325 MG TABLET PO SCH ×2 (09:49→21:42)
[2022-03-17] MEDS: FUROSEMIDE 40 MG TABLET PO SCH (09:49)
[2022-03-17] MEDS: METOPROLOL TARTRATE 100 MG TABLET PO SCH (09:49)
[2022-03-17] MEDS: INSULIN LISPRO 100 UNIT/ML SUBCUT SCH ×4 (09:51→21:42)
[2022-03-17] MEDS: ENOXAPARIN 40 MG/0.4 ML SYRINGE SUBCUT SCH (15:00)
[2022-03-17] MEDS: POTASSIUM CHLORIDE RIDER 10 MEQ/100 ML PREMIX IV SCH (15:05)
[2022-03-17] MEDS: MORPHINE 2 MG/1 ML SYRINGE IV PRN (16:08)
[2022-03-17] MEDS: SODIUM HYPOCHLORITE 0.25% IRRIG 473 ML BOTTLE TOP SCH (16:09)
[2022-03-18] MEDS: ALBUTEROL 2.5 MG/3 ML NEB RESP TX SCH ×4 (00:44→19:51)
[2022-03-18] MEDS: PIPERACILLIN/TAZOBACTAM 3,375 MG in SODIUM CHLORIDE 0.9% 100 ML IV SCH ×3 (03:09→18:43)
[2022-03-18 05:01] LABS: Calcium 8.5 MG/DL (8.5-10.1); Osmolality,Calculated 280.1 MOS/KG (273-304)
[2022-03-18 05:10] LABS: Basophils % 0.2 % (0.0-0.8); Eosinophils # 0.2 10*3/uL (0.0-0.87); Eosinophils % 1.1 % (0.00-10.9); Hematocrit 39.3 VOL% (35.7-47.0); Hemoglobin 11.3 GM/DL (12.0-16.0); Immature Granulocytes % 0.9 %; Immature Granulocytes Absolute 0.14 #; Lymphocytes % 6.7 % (21.3-54.2); Mean Corpuscular HGB Conc 28.8 GM/DL (32-36); Mean Corpuscular Volume 86.2 FL (87-102); Mean Platelet Volume 12.5 FL (9.6-12.0); Monocytes # 0.8 10*3/uL (0.11-0.8); Neutrophils % 86.1 % (38.7-73.9); Platelet Count 287 T/CUMM (130-400); Red Blood Count 4.56 MC/CUMM (3.8-5.5); Red Cell Distribution Width 16.5 % (9.3-17.3); White Blood Count 15.1 T/CUMM (4-12)
[2022-03-18] MEDS: POTASSIUM CHLORIDE 20 MEQ TABLET PO PRN ×4 (06:03→18:45)
[2022-03-18] MEDS: FERROUS SULFATE 325 MG TABLET PO SCH ×2 (09:57→21:28)
[2022-03-18] MEDS: METOPROLOL TARTRATE 100 MG TABLET PO SCH (09:57)
[2022-03-18] MEDS: SODIUM HYPOCHLORITE 0.25% IRRIG 473 ML BOTTLE TOP SCH (09:57)
[2022-03-18] MEDS: PANTOPRAZOLE 40 MG TABLET PO SCH (09:58)
[2022-03-18] MEDS: FUROSEMIDE 40 MG TABLET PO SCH (09:58)
[2022-03-18] MEDS: INSULIN LISPRO 100 UNIT/ML SUBCUT SCH ×4 (10:00→21:26)
[2022-03-18] MEDS: MORPHINE 2 MG/1 ML SYRINGE IV PRN (15:45)
[2022-03-18] MEDS: VANCOMYCIN INJ 2,000 MG in SODIUM CHLORIDE 0.9% 500 ML IV SCH (15:45)
[2022-03-18] MEDS: ENOXAPARIN 40 MG/0.4 ML SYRINGE SUBCUT SCH (21:29)
[2022-03-19] MEDS: ALBUTEROL 2.5 MG/3 ML NEB RESP TX SCH ×3 (01:25→13:30)
[2022-03-19] MEDS: PIPERACILLIN/TAZOBACTAM 3,375 MG in SODIUM CHLORIDE 0.9% 100 ML IV SCH ×2 (01:47→11:00)
[2022-03-19 05:57] LABS: Calcium 9.1 MG/DL (8.5-10.1); Osmolality,Calculated 281.1 MOS/KG (273-304); Potassium 3.7 MMOL/L (3.5-5.1)
[2022-03-19 06:08] LABS: Basophils % 0.3 % (0.0-0.8); Eosinophils # 0.2 10*3/uL (0.0-0.87); Eosinophils % 1.5 % (0.00-10.9); Hemoglobin 10.9 GM/DL (12.0-16.0); Immature Granulocytes % 0.8 %; Lymphocytes % 8.4 % (21.3-54.2); Mean Corpuscular HGB Conc 28.5 GM/DL (32-36); Mean Platelet Volume 12.1 FL (9.6-12.0); Monocytes # 0.8 10*3/uL (0.11-0.8); Monocytes % 6.6 % (1.7-12.7); Neutrophils % 82.4 % (38.7-73.9); Platelet Count 299 T/CUMM (130-400); Red Blood Count 4.39 MC/CUMM (3.8-5.5); Red Cell Distribution Width 16.6 % (9.3-17.3); White Blood Count 11.8 T/CUMM (4-12)
[2022-03-19 06:10] LABS: Hematocrit 38.2 VOL% (35.7-47.0)
[2022-03-19] MEDS: SODIUM HYPOCHLORITE 0.25% IRRIG 473 ML BOTTLE TOP SCH (09:09)
[2022-03-19] MEDS: POTASSIUM CHLORIDE 20 MEQ TABLET PO PRN (09:31)
[2022-03-19] MEDS: PANTOPRAZOLE 40 MG TABLET PO SCH (09:31)
[2022-03-19] MEDS: METOPROLOL TARTRATE 100 MG TABLET PO SCH (09:31)
[2022-03-19] MEDS: FERROUS SULFATE 325 MG TABLET PO SCH (09:32)
[2022-03-19] MEDS: FUROSEMIDE 40 MG TABLET PO SCH (09:32)
[2022-03-19] MEDS: VANCOMYCIN INJ 2,000 MG in SODIUM CHLORIDE 0.9% 500 ML IV SCH (09:32)
[2022-03-19] MEDS: INSULIN LISPRO 100 UNIT/ML SUBCUT SCH ×2 (10:08→13:11)
[2022-03-19] MEDS: MORPHINE 2 MG/1 ML SYRINGE IV PRN (14:20)
== END 2022-03-19 16:25 | disposition home health service (06) | DRG 710 ==
LOC: N.ED 14:02 → N.EDINP 20:02 → SUATTDRO 20:02 → N.EDINP 03-16 11:57 → N.3E 03-16 13:15 → N.CC 03-16 20:02
PROVIDERS: ADMIT Internal Medicine; ATTEND Internal Medicine